=== PATIENT | female | born 2000 | race Caucasian/White ===

== ENCOUNTER 2020-07-22 16:45 | Emergency (ER) | payer OTHER ==
--- NOTE | 2020-07-22 17:04 | TELE ---
HPI Do you have fever,cough or shortness of breath?: No - General Reason For Visit: COVID TEST History Source: Patient Exam Limitations: No Limitations - History of Present Illness 07/22/20 16:59 Patient is a 19-year-old female with a history of asthma who participated in a telehealth visit for a routine COVID test. She states that she feels she is having difficulty smelling pungent smells and is concerned she may have been ex posed to COVID. She denies any other symptoms. 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 She has had questionable COVID contacts that she does work in the emergency department. She denies any allergies to medications. Review of Systems - Review of Systems Comments:: 07/22/20 17:00 - Review of Systems Able to Perform ROS?: Yes Constitutional: No: Fever, Chills, Loss of Appetite, Night Sweats, Weakness; positive: Routine COVID testing HEENTM: No: Eye Pain, Vision changes, Ear Pain, Throat Pain, Throat Swelling, Mouth Pain, Difficulty Swallowing; positive: Loss of sense of smell Respiratory: No: Cough, Shortness of Breath, Wheezing, Sputum Production Cardiac (ROS): No: Chest Pain, Chest Tightness, Palpitations, Irregular Heart Beat, Edema ABD/GI: No: Nausea, Vomiting, Abdominal Pain, Diarrhea : No Dysuria, No Hematuria, No Frequency, No Urgency Musculoskeletal: No: Muscle Pain, Back Pain, Joint Pain, Muscle Weakness, Neck Pain Integumentary: No: Lesions, Rash Neurological: No: Headache, Numbness, Tingling, Weakness, Speech Difficulties *Physical Exam - Physical Exam 07/22/20 17:02 - Physical Exam General Appearance: Nourished, Appropriately Dressed, No Distress HEENT: EOMI, Normal Voice, Hearing Grossly Normal Neck: No Decreased range of motion Respiratory/Chest: Normal chest excursion appreciated, No Accessory Muscle Use Gastrointestinal/Abdominal: No distention Musculoskeletal: Normal Inspection Integumentary: Normal Color, Dry. 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 Plan: -COVID swab ordered -COVID counseling given, isolation precautions reviewed -Patient to proceed to the [facility] for COVID swab -She understands and agrees with this treatment and plan. Discharge Diagnosis at time of Disposition: Loss of sense of smell, Counseled about COVID-19 virus infection - Referrals - Patient Instructions Discharge Instructions: [facility]on[facility] Instructions, [facility] COVID-19 Isolation Protocol Additional Discharge Instructions: You were seen via a telehealth visit and tested for COVID today. You should follow isolation precautions as per [facility] guidelines. Thank you for participating in our telehealth medicine program. If you have any worsening symptoms such as high fever, shaking chills, profuse vomiting or any other worsening symptoms you should go to your local emergency department immediately or follow up with your primary care doctor immediately. If you become symptomatic: Take Tylenol 650 mg every 6 hours as needed for fever or pain. You may take Robitussin or other [id number] cough syrup. Follow the dosing instructions on the bottle. Warm tea, honey, and salt water gargles may help your symptoms. Please take precautions and self quarantine for 2 weeks and follow-up with your primary care doctor and the Department of Health. Return to the nearest emergency department for shortness of breath, difficulty breathing, chest pain, or if you have any changes in your symptoms. - Discharge Disposition: HOME Condition at time of Disposition: Stable
== END 2020-07-22 17:04 | disposition home or self-care (01) ==
LOC: JVIRT 16:45
DX: Z20.828 Contact with and (suspected) exposure to other viral communicable diseases (principal)
CPT/HCPCS: Q3014-GT

== ENCOUNTER 2023-11-15 13:22 | Emergency (ER) | payer OTHER ==
[2023-11-15 13:37] VITALS: BP 124/76; PULSE 88; RESP 18; TEMP 99.3; BMI 27.4
[2023-11-15 16:06] LABS: THROAT:GRP A STREP NOT DETECTED (NOTDETECTED)
== END 2023-11-15 14:19 | disposition home or self-care (01) ==
LOC: FER 13:22
DX: H92.02 Otalgia, left ear (principal); R05.9 Cough, unspecified; R09.81 Nasal congestion; J02.9 Acute pharyngitis, unspecified; H66.92 Otitis media, unspecified, left ear; J03.90 Acute tonsillitis, unspecified; Z20.822 Contact with and (suspected) exposure to COVID-19
CPT/HCPCS: 0241U-QW; 87651; 99283-25